=== PATIENT | male | born 1970 | race Caucasian/White ===

== ENCOUNTER → 2021-04-04 | Outpatient (CLI) | payer OTHER ==
[~2021-04-04] MED LIST: BACTROBAN OINT22 GM EXT; IBUPROFEN800 MG PO; KEFLEX500 MG PO
== END ==
LOC: LAB 17:02
PROVIDERS: Podiatrist Foot & Ankle Surgery
DX: M54.16 Radiculopathy, lumbar region (principal); L60.0 Ingrowing nail; M79.675 Pain in left toe(s); M79.671 Pain in right foot; M25.572 Pain in left ankle and joints of left foot; M77.31 Calcaneal spur, right foot; M19.071 Primary osteoarthritis, right ankle and foot; M79.672 Pain in left foot; M72.2 Plantar fascial fibromatosis; M25.571 Pain in right ankle and joints of right foot; R60.0 Localized edema; M66.871 Spontaneous rupture of other tendons, right ankle and foot; G89.29 Other chronic pain; M20.41 Other hammer toe(s) (acquired), right foot; M20.42 Other hammer toe(s) (acquired), left foot; L85.3 Xerosis cutis; M65.871 Other synovitis and tenosynovitis, right ankle and foot; S93.691A Other sprain of right foot, initial encounter; X58.XXXA Exposure to other specified factors, initial encounter
CPT/HCPCS: 80307

== ENCOUNTER → 2021-08-15 | Outpatient (CLI) | payer OTHER ==
[2021-08-27 15:14] LABS: ALPRAZOLAM Positive (.); ALPRAZOLAM CONFIRM 852 ng/mL (Cutoff=100); AMPHETAMINES, URINE Negative ng/mL (Cutoff=1000); BARBITURATE Negative ng/mL (Cutoff=200); BENZODIAZEPINES Positive ng/mL (Cutoff=100); BENZODIAZEPINES See Final Results ng/mL (Cutoff=200); CANNABINOID Positive (Cutoff=20); CANNABINOIDS See Final Results ng/mL (Cutoff=20); CARBOXY THC GC/MS CONF 318 ng/mL (Cutoff=10); CLONAZEPAM Negative (Cutoff=100); COCAINE (METABOLITE) Negative ng/mL (Cutoff=300); CREATININE 85.2 mg/dL (20.0-300.0); FLURAZEPAM Negative (Cutoff=100); LORAZEPAM Negative (Cutoff=100); MEPERIDINE Negative ng/mL (Cutoff=200); METHADONE Negative ng/mL (Cutoff=300); MIDAZOLAM Negative (Cutoff=100); NORDIAZEPAM Negative (Cutoff=100); OPIATES Negative ng/mL (Cutoff=300); OPIATES See Final Results ng/mL (Cutoff=300); OXAZEPAM Negative (Cutoff=100); OXYCODONE Positive (.); OXYCODONE (GC/MS) >3000 ng/mL (Cutoff=300); OXYCODONE/OXYMORPH Positive (Cutoff=300); OXYMORPHONE Positive (.); OXYMORPHONE (GC/MS) 1574 ng/mL (Cutoff=300); PHENCYCLIDINE Negative ng/mL (Cutoff=25); PROPOXYPHENE Negative ng/mL (Cutoff=300); TEMAZEPAM Negative (Cutoff=100); TRIAZOLAM Negative (Cutoff=100)
== END ==
LOC: LAB 14:59
PROVIDERS: Podiatrist Foot & Ankle Surgery
DX: Z03.89 Encounter for observation for other suspected diseases and conditions ruled out (principal)
CPT/HCPCS: 80307